=== PATIENT | male | born 1935 | race Caucasian/White ===

== ENCOUNTER 2018-02-21 16:31 | Inpatient (IN) | payer MEDICARE ==
[~2018-02-21] VITALS: Ht 182.9 cm; Wt 83.5 kg
[2018-02-21 17:43] LABS: BASOPHILS % 0.1 % (0.0-1.0); EOSINOPHILS % 0.1 % (0.0-6.0); HEMATOCRIT 40.9 % (38.2-49.6); HEMOGLOBIN 13.6 g/dL (14.0-18.0); LYMPHOCYTES # (AUTO) 0.4 (1.0-3.2); LYMPHOCYTES % 5.2 % (18.0-39.1); MEAN CORPUSCULAR HEMOGLOBIN 28.9 pg (28-32); MEAN CORPUSCULAR HGB CONC 33.3 g/dL (31-35); MEAN CORPUSCULAR VOLUME 86.8 fL (81-99); MONOCYTES # (AUTO) 0.3 (0.2-0.8); NEUTROPHILS # (AUTO) 7.7 (2.1-6.9); NEUTROPHILS % 91.2 % (38.7-80.0); PLATELET COUNT 150 x10e3/uL (140-360); RED BLOOD COUNT 4.71 x10e6/uL (4.3-5.7); RED CELL DISTRIBUTION WIDTH 13.8 % (11.7-14.4)
[2018-02-21] MEDS ORDERED: SODIUM CHLORIDE 0.9% 1000ML 1,000 ML IV SCH (17:45)
[2018-02-21 18:01] LABS: ALBUMIN 3.8 g/dL (3.5-5.0); ALBUMIN/GLOBULIN RATIO 1.1 (0.8-2.0); ANION GAP 18.2 mmol/L (8-16); CALCIUM 9.8 mg/dL (8.4-10.2); CREATININE, SERUM 1.2 mg/dL (0.72-1.25); POTASSIUM 4.2 mmol/L (3.5-5.1)
[2018-02-21 18:09] LABS: INR 0.94; PROTHROMBIN TIME 13.4 seconds (11.9-14.5)
[2018-02-21 18:10] LABS: PARTIAL THROMBOPLASTIN TIME 28.6 seconds (23.8-35.5)
--- NOTE | 2018-02-21 18:11 | Diagnostic Imaging Report ---
EXAMINATION: Chest AP portable INDICATION: Altered mental status. COMPARISON: None FINDINGS: TUBES and LINES: None. LUNGS: Lungs are well inflated. Lungs are clear. There is no evidence of pneumonia or pulmonary edema. PLEURA: No pleural effusion or pneumothorax. HEART AND MEDIASTINUM: Mediastinal wires and mediastinal clips. The cardiac silhouette is mildly enlarged. BONES AND SOFT TISSUES: No acute osseous lesion. UPPER ABDOMEN: No free air under the diaphragm. IMPRESSION: Mild cardiomegaly without acute decompensation. Signed by: Dr. Park Hebert M.D. on 02/21/2018 6:08 PM
--- NOTE | 2018-02-21 18:11 | Diagnostic Imaging Report ---
Examination: CT head without contrast Clinical Indication: Confusion. Altered mental status. Technique: Transaxial noncontrast images from the skull base through the vertex were obtained. Sagittal and coronal reformatted images were done. Dose modulation, iterative reconstruction, and/or weight based adjustment of the mA/kV was utilized to reduce the radiation dose to as low as reasonably achievable. Comparison: None. Findings: Scalp: No abnormalities. Bones: Intact. No fractures. No blastic or lytic lesions. Brain sulci: Moderate volume loss for patient's age. Ventricles: No hydrocephalus. Extra-axial space: No abnormalities. Parenchyma: There are confluent areas of low-attenuation within subcortical and periventricular white matter, nonspecific, but could represent microvascular ischemic disease. No masses, hemorrhage, or acute or chronic cortical based vascular insults. Suprasellar region: No abnormalities. Craniocervical junction: The foramen magnum is patent. No Chiari one malformation. Incidental findings: Atherosclerotic calcification of the cavernous and supraclinoid internal carotid and V4 segments of the bilateral vertebral arteries. Impression: 1. No acute intracranial finding. 2. Mild chronic microvascular ischemic change. Moderate volume loss for age. Signed by: Dr. Marilyn Watson M.D. on 02/21/2018 6:07 PM
[2018-02-21 18:24] LABS: CREATINE KINASE MB 4.4 ng/mL (0-5.0); THYROID STIMULATING HORMONE 0.824 uIU/mL (0.350-4.940)
[2018-02-21 19:05] LABS: PLATELET ESTIMATE ADEQUATE; PLATELET MORPHOLOGY COMMENT NORMAL; RBC MORPHOLOGY COMMENT NORMAL
[2018-02-21] MEDS ORDERED: ONDANSETRON HCL INJ 2 MG/ML VIAL IV PRN (19:15)
--- OUTSIDE RECORDS SUMMARY | 2018-02-21 19:29 | XMS REPORT ---
Author Author [facility] Address Unknown Phone Unavailable Care Team Providers Care [place] Line Attendant Name Role Phone JMNoé MCKOY Unavailable Unavailable Problems This patient has no known problems. Allergies, Adverse Reactions, Alerts This patient has no known allergies or adverse reactions. Medications This patient has no known medications. Results Test Description Test Time Test Comments Text Results Atomic Results Result Comments CHEST SINGLE (PORTABLE) 2018-02-21 18:07:00 [place] [address] Patient Name: DEJA LESLIE MR #: [id number] : 1935 Age/Sex: 82/M Req #: [id number] Adm Physician: Ordered by: JAYRO QUINONEZ [employer]OL Report #: [id number] Location: ER Room/Bed: Procedure: [id number] DX/CHEST SINGLE (PORTABLE) Exam Date: 02/21/18 Exam Time: 1740 REPORT STATUS: Signed EXAMINATION: Chest AP portable INDICATION: Altered mental status. COMPARISON: None FINDINGS: TUBES and LINES: None. LUNGS: Lungs are well inflated. Lungs are clear. There is no evidence of pneumonia or pulmonary edema. PLEURA: No pleural effusion or pneumothorax. HEART AND MEDIASTINUM: Mediastinal wires and mediastinal clips. The cardiac silhouette is mildly enlarged. BONES AND SOFT TISSUES: No acute osseous lesion. UPPER ABDOMEN: No free air under the diaphragm. IMPRESSION: Mild cardiomegaly without acute decompensation. Signed by: Dr. Park Vences M.D. on 02/21/2018 6:08 PM Dictated By: DEE VENCES MD, MD 07 Transcribed By: WILSON on 02/21/181807 COPY TO: JAYRO QUINONEZ NP CT BRAIN WO 2018-02-21 18:06:00 [place] [address] Patient Name: DEJA LESLIE MR #: [id number] : 1935 Age/Sex: 82/M Req #: [id number] Adm Physician: Ordered by: JAYRO QUINONEZ [employer]AL[employer] Report #: [id number] Location: ER Room/Bed: Procedure: [id number] CT/CT BRAIN WO Exam Date: 02/21/18 Exam Time: 1740 REPORT STATUS: Signed Examination: CT head without contrast Clinical Indication: Confusion. Altered mental status. Technique: Transaxial noncontrast images from the skull base through the vertex were obtained. Sagittal and coronal reformatted images were done. Dose modulation, iterative reconstruction, and/or weight based adjustment of the mA/kV was utilized to reduce the radiation dose to as low as reasonably achievable. Comparison: None. Findings: Scalp: No abnormalities. Bones: Intact. No fractures. No blastic or lytic lesions. Brain sulci: Moderate volume loss for patient's age. Ventricles: No hydrocephalus. Extra-axial space: No abnormalities. Parenchyma: There are confluent areas of low-attenuation within subcortical and periventricular white matter, nonspecific, but could represent microvascular ischemic disease. No masses, hemorrhage, or acute or chronic cortical based vascular insults. Suprasellar region: No abnormalities. Craniocervical junction: The foramen magnum is patent. No Chiari one malformation. Incidental findings: Atherosclerotic calcification of the cavernous and supraclinoid internal carotid and V4 segments of the bilateral vertebral arteries. Impression: 1. No acute intracranial finding. 2. Mild chronic microvascular ischemic change. Moderate volume loss for age. Signed by: Dr. Marilyn Valdez M.D. on 02/21/2018 6:07 PM Dictated By: MARILYN PRUETT MD 06 Transcribed By: WILSON on 02/21/181806 COPY TO: JAYRO QUINONEZ NP
[2018-02-21] MEDS ORDERED: BISOPROLOL FUMAR5 MG PO (19:36)
[2018-02-21] MEDS ORDERED: OMEPRAZOLE40 MG PO (19:36)
[2018-02-21] MEDS ORDERED: TERAZOSIN HCL5 MG PO (19:36)
[2018-02-21] MEDS ORDERED: ASPIR 8181 MG PO (19:36)
[2018-02-21] MEDS ORDERED: LOVASTATIN20 MG PO (19:36)
[2018-02-21] MEDS ORDERED: TYLENOL WITH C1 EACH PO (19:36)
[2018-02-21] MEDS ORDERED: POTASSIUM CHLO10 ME1 PO (19:36)
[2018-02-21] MEDS ORDERED: AMOXICILLIN250 MG PO (19:36)
[2018-02-21] MEDS ORDERED: FUROSEMIDE40 MG PO (19:36)
[2018-02-21] MEDS ORDERED: FINASTERIDE5 MG PO (19:36)
[2018-02-21 19:57] LABS: COLOR,URINE YELLOW (YELLOW)
[2018-02-21 19:58] LABS: BILIRUBIN,URINE NEGATIVE (NEGATIVE); CLARITY,URINE HAZY (CLEAR); KETONES,URINE TRACE (NEGATIVE); LEUKOCYTE ESTERASE ,URINE NEGATIVE (NEGATIVE); NITRITE,URINE NEGATIVE (NEGATIVE); PROTEIN,URINE DIPSTICK 1+ (NEGATIVE); URINE UROBILINOGEN 0.2 mg/dL (0.2 - 1)
[2018-02-21 20:18] LABS: BACTERIA,URINE MODERATE /HPF; EPITHELIAL CELLS,URINE FEW /LPF; RBC,URINE 0-5 /HPF (0-5)
[2018-02-21 20:19] LABS: MUCUS,URINE MANY (RARE)
[2018-02-21] MEDS: SODIUM CHLORIDE 0.9% 1000ML 1,000 ML IV SCH (21:52)
[2018-02-22] MEDS: SODIUM CHLORIDE 0.9% 1000ML 1,000 ML IV SCH ×2 (03:42→10:30)
[2018-02-22] MEDS ORDERED: CEFTRIAXONE SOD 1 GM VIAL IV SCH (06:30)
[2018-02-22] MEDS ORDERED: CARVEDILOL 12.5 MG TAB PO ONE (06:30)
[2018-02-22] MEDS ORDERED: HYDRALAZINE HCL 20 MG/ML VIAL IV PRN (10:15)
[2018-02-22] MEDS ORDERED: HYDRALAZINE HCL 20 MG/ML VIAL ONE (10:19)
[2018-02-22] MEDS ORDERED: ACETAMINOPHEN 325 MG TAB PO PRN (13:15)
[2018-02-22] MEDS ORDERED: PIPER-TAZ 3.375 GM / NS 50ML IV SCH ×2 (14:00)
--- NOTE | 2018-02-22 14:27 | Diagnostic Imaging Report ---
Exam: Brain MRI without IV contrast History: Dizziness, weakness, rule out stroke Comparison studies: Head CT 02/21/2018. Technique: Axial T2 FS, axial DWI, axial T2*GRE, axial T1 FLAIR and axial coronal T2 FLAIR. Intravenous contrast: None Findings: Limitations: The axial coronal T2 FLAIR sequences are somewhat limited by artifacts related to patient motion. Scalp: Normal in signal. No masses. Bone marrow: Normal in signal intensity. Brain sulci: Mildly prominent. Ventricles: Moderately dilated ventricles, slightly disproportionate to sulcal prominence is most likely related to a degree of central greater peripheral cortical volume loss. Consider normal pressure hydrocephalus (NPH) only in the appropriate clinical setting. No acute hydrocephalus. Extra axial spaces: No mass, no fluid collection. Parenchyma: No mass, hemorrhage or acute ischemia. Scattered T2 FLAIR hyperintense foci in the supratentorial white matter are nonspecific but most compatible with chronic microvascular ischemic changes. There is mild T2 FLAIR hyperintense capping-banding along the ventricular margins. Suprasellar region: No abnormalities. Craniocervical junction: Patent foramen magnum. No Chiari malformation. Vessels: Normal flow-voids in the arteries and sinuses. Incidental findings: Lens replacements for previous scattered surgery. Mild inflammatory mucosal thickening in the right maxillary sinus. IMPRESSION: No acute ischemia or other acute intracranial abnormalities. Chronic findings: 1. Moderate generalized volume loss. 2. Mild chronic microvascular ischemic changes. 3. Ventriculomegaly, likely related to volume loss. Consider NPH only in the appropriate clinical setting. Signed by: Dr. Heraclio Beasley M.D. on 02/22/2018 2:24 PM
[2018-02-22] MEDS: BISOPROLOL FUMARATE 10 MG TAB PO SCH (14:44)
[2018-02-22] MEDS: PIPER-TAZ 3.375 GM 50 ML IV SCH (14:44)
[2018-02-22] MEDS: LACTOBACILLUS ACIDOPHILUS CAPSULE PO SCH (16:35)
[2018-02-22] MEDS: METOPROLOL TARTRATE INJ 1 MG/ML VIAL IV PRN (16:36)
[2018-02-22 16:45] VITALS: BP 157/97
[2018-02-22 16:51] VITALS: BP 157/97
[2018-02-22 17:01] VITALS: BP 198/118
[2018-02-22 20:13] VITALS: BP 177/97
[2018-02-22 20:45] VITALS: BP 177/97
[2018-02-22] MEDS: TERAZOSIN HCL 5 MG CAP PO SCH (20:45)
[2018-02-22] MEDS: SIMVASTATIN 20 MG TAB PO SCH (20:45)
[2018-02-22] MEDS ORDERED: ZIPRASIDONE 20 MG VIAL IM ONE (21:15)
[2018-02-22] MEDS ORDERED: WATER STERILE 10 ML VIAL INJ PRN (21:30)
[2018-02-23] VITALS (7 sets, daily range): BP systolic 118–153; BP diastolic 62–99
[2018-02-23] MEDS: METOPROLOL TARTRATE INJ 1 MG/ML VIAL IV PRN (01:40)
[2018-02-23] MEDS: PIPER-TAZ 3.375 GM 50 ML IV SCH (02:00)
[2018-02-23 05:26] LABS: BASOPHILS % 0.1 % (0.0-1.0); EOSINOPHILS % 0.1 % (0.0-6.0); HEMOGLOBIN 12.4 g/dL (14.0-18.0); LYMPHOCYTES # (AUTO) 1.1 (1.0-3.2); LYMPHOCYTES % 7.5 % (18.0-39.1); MEAN CORPUSCULAR HEMOGLOBIN 28.7 pg (28-32); MEAN CORPUSCULAR HGB CONC 33.5 g/dL (31-35); MEAN CORPUSCULAR VOLUME 85.6 fL (81-99); MONOCYTES % 6.5 % (4.4-11.3); NEUTROPHILS # (AUTO) 12.5 (2.1-6.9); NEUTROPHILS % 85.2 % (38.7-80.0); PLATELET COUNT 163 x10e3/uL (140-360); RED BLOOD COUNT 4.32 x10e6/uL (4.3-5.7)
[2018-02-23 05:46] LABS: BLOOD UREA NITROGEN 23 mg/dL (7-26); BUN/CREATININE RATIO 29 (6-25); CALCIUM 8.9 mg/dL (8.4-10.2); CARBON DIOXIDE 22 mmol/L (22-29); CHLORIDE 105 mmol/L (98-107); CHOL/HDL RATIO 3.6 (3.9-4.7); CHOLESTEROL 125 MD/DL (0-199); CREATINE KINASE 356 IU/L (30-200); CREATININE, SERUM 0.78 mg/dL (0.72-1.25); EST GLOMERULAR FILTRATION RATE > 60 ML/MIN (60-); GLUCOSE 128 mg/dL (74-118); HDL CHOLESTEROL 35 MG/DL (40-60); LDL CHOLESTEROL 73 MG/DL (60-130); SODIUM 137 mmol/L (136-145); TRIGLYCERIDES 86 MG/DL (0-149)
[2018-02-23 06:06] LABS: THYROID STIMULATING HORMONE 0.533 uIU/mL (0.350-4.940)
[2018-02-23] MEDS: BISOPROLOL FUMARATE 10 MG TAB PO SCH (08:25)
[2018-02-23] MEDS: ASPIRIN 81 MG CHEW TAB PO SCH (08:25)
[2018-02-23] MEDS: LACTOBACILLUS ACIDOPHILUS CAPSULE PO SCH ×2 (08:25→16:48)
[2018-02-23] MEDS: FINASTERIDE 5 MG TAB PO SCH (08:25)
[2018-02-23] MEDS ORDERED: NON-FORMULARY MEDICATION (Bisoprolol Fumarate 5 MG) PO SCH (09:00)
[2018-02-23] MEDS ORDERED: BISOPROLOL FUMARATE 10 MG TAB PO SCH (09:00)
[2018-02-23] MEDS ORDERED: LACTATED RINGER'S 1,000 ML IV ONE (11:30)
--- NOTE | 2018-02-23 15:02 | Consultation ---
DATE OF CONSULTATION: February 23, 2018 CARDIOLOGY CONSULTATION REQUESTING PHYSICIAN: Dr. Hernandez REASON FOR CONSULTATION: A-flutter. HISTORY OF PRESENT ILLNESS: This is an 82-year-old male that presented with altered mental status. According to the patient and brother at the bedside, for the last 3 months he has been having confusion, making bad decisions and having generalized weakness. The brother stated that within the last 2 weeks it got worse, and he went to see his PCP. At the PCP's office, he was sent to the emergency room for further evaluation due to the altered mental status. He has a history of CAD and open heart surgery in the past and AK and stroke. He was so agitated last night that he was given some Geodon IM. This morning, he went into A-flutter, and cardiology was consulted. He denied any chest pain, any palpitations, any shortness of breath or diaphoresis. Troponin times 1 was negative. EKG showed normal sinus rhythm with no ST abnormalities. CK was elevated at 356. The BNP 198. B12 was 1351. TSH 0.5. PAST MEDICAL HISTORY: Hypertension, hyperlipidemia, GERD, stroke, CAD, BPH and AK. PAST SURGICAL HISTORY: CABG at [facility]. FAMILY HISTORY: Positive for hypertension and CAD. SOCIAL HISTORY: He lives at home with family. No smoking. No drinking. MEDICATIONS: See med disease. ALLERGIES: HE IS NOT ALLERGIC TO ANY MEDICATION. REVIEW OF SYSTEMS: Unable to obtain due to altered mental status. PHYSICAL EXAMINATION VITALS: Temperature 97, heart rate 70. Blood pressure 118/62, respirations 16, oxygen saturation 100% on 2 liters nasal cannula. GENERAL: He is awake and alert but pleasantly confused. HEENT: Mucous membranes are moist. NECK: Supple. LUNGS: Bilaterally clear to auscultation. CARDIOVASCULAR: S1, S2 present. ABDOMEN: Soft. NEUROLOGIC: He is awake. Answers simple questions but confused. EXTREMITIES: No edema. LABS: Sodium 137, potassium 4.0, chloride 105, CO2 22. BUN 23, creatinine 0.78. Glucose 128. White blood cells 14.6, hemoglobin 12.4, hematocrit 37.0, platelets 163. PT 13.4, PTT 28.6, INR 0.94. IMPRESSION 1. Atrial flutter. 2. Altered mental status. 3. Coronary artery disease with coronary artery bypass graft. 4. Hypertension. 5. Hyperlipidemia. 6. History of stroke. ASSESSMENT AND PLAN 1. He is back to normal sinus rhythm. Will go ahead and continue beta ric. 2. Will check his magnesium. 3. Will get bilateral carotid Doppler to rule out any occlusion. 4. He had an echocardiogram done that showed normal systolic function. EF 55% to 60%. 5. Will continue his home medications. 6. Further cardiac workup pending clinical cause. Thank you for this consultation. Dictated by Omar Hernandez NP. Job#: [id number]
[2018-02-23] MEDS ORDERED: HALOPERIDOL LACTATE 5 MG/ML VIAL IM PRN (16:00)
[2018-02-23] MEDS ORDERED: LORAZEPAM INJ 2 MG/ML VIAL IM PRN (16:00)
[2018-02-23] MEDS ORDERED: LORAZEPAM 0.5 MG TAB PO PRN (16:00)
[2018-02-23] MEDS ORDERED: OLANZAPINE 5 MG TAB PO PRN (16:00)
[2018-02-23] MEDS ORDERED: METOCLOPRAMIDE HCL 10 MG/2ML VIAL IV PRN (19:00)
[2018-02-23] MEDS ORDERED: METOPROLOL TARTRATE INJ 1 MG/ML VIAL IV PRN (19:15)
[2018-02-23] MEDS: SIMVASTATIN 20 MG TAB PO SCH (20:42)
[2018-02-23] MEDS: TERAZOSIN HCL 5 MG CAP PO SCH (20:42)
[2018-02-24] VITALS (7 sets, daily range): BP systolic 120–161; BP diastolic 57–88
[2018-02-24 05:14] LABS: BASOPHILS % 0.2 % (0.0-1.0); EOSINOPHILS # (AUTO) 0.2 (0.0-0.4); EOSINOPHILS % 1.7 % (0.0-6.0); HEMATOCRIT 37.8 % (38.2-49.6); HEMOGLOBIN 12.6 g/dL (14.0-18.0); LYMPHOCYTES # (AUTO) 1.8 (1.0-3.2); LYMPHOCYTES % 19.5 % (18.0-39.1); MEAN CORPUSCULAR HGB CONC 33.3 g/dL (31-35); MEAN CORPUSCULAR VOLUME 87.1 fL (81-99); MONOCYTES # (AUTO) 0.7 (0.2-0.8); MONOCYTES % 7.4 % (4.4-11.3); NEUTROPHILS # (AUTO) 6.6 (2.1-6.9); NEUTROPHILS % 70.8 % (38.7-80.0); PLATELET COUNT 136 x10e3/uL (140-360); RED BLOOD COUNT 4.34 x10e6/uL (4.3-5.7); RED CELL DISTRIBUTION WIDTH 14.1 % (11.7-14.4)
[2018-02-24] MEDS ORDERED: ENOXAPARIN SODIUM INJ 100 MG/ML SYR SC SCH (08:00)
--- NOTE | 2018-02-24 08:49 | Consultation ---
DATE OF CONSULTATION: February 23, 2018 PSYCHIATRIC CONSULTATION REASON FOR CONSULTATION: Evaluate the patient's psychosis. HISTORY OF PRESENT ILLNESS: Patient is an 82-year-old male admitted to the hospital for generalized weakness and dehydration. Psychiatric consultation was sought to evaluate the patient's psychosis. As per the medical record, the patient has been confused for less than a month. Was making bad decisions. His confusion worsened when he went to see his primary care doctor, who then recommended to be admitted to the hospital. When he was admitted to the hospital, he became very agitated. Last night, he received 1 dose of Geodon. In the morning, he went into A-flutter, and cardiology was consulted. PAST MEDICAL HISTORY: Includes hypertension, hyperlipidemia, GERD, stroke, CAD, BPH, and KS. Upon evaluation today, the patient is found to be in the room with his family members. He is alert, awake and oriented to self. He recognizes family members, but very confused. He does not know where he is or the reason for his hospitalization. Patient does not make sense and unable to answer questions appropriately. History was taken with the help of his family members. As per the family members, the patient was "normal" until last week. However, he has been making bad decisions. For example, trading in his car for a lease car, and allowing people to take advantage of him. He has been hallucinating, seeing people in the room. He has never been diagnosed with any dementia. He has been sleeping and eating okay as per family. Prior to the prior event, he was a caregiver for his and was driving and independent in his ADLs. PAST PSYCHIATRIC HISTORY: The patient has no past psychiatric history as per family members. He does not drink alcohol or use any drugs. FAMILY HISTORY: He has a father who has dementia. Brother has dementia. SOCIAL HISTORY: The patient lives with is . MENTAL STATUS EXAMINATION GENERAL: The patient is an elderly male. He is alert, awake and oriented to self. He is confused and disoriented. His mood appears to be anxious. He denies any suicidal or homicidal ideation. He denies any hallucinations. Thought process is loose. He is delusional. Insight and judgment are impaired. Memory appears to be grossly impaired. CURRENT MEDICATIONS 1. . 2. Terazosin. 3. Lactobacillus. 4. Glimepiride. 5. Aspirin. 6. Bisoprolol. 7. Metoprolol. 8. Enoxaparin. 9. Acetaminophen. CURRENT LABS: WBC 9.32, RBC 4.34, hemoglobin 12.6, hematocrit 37.8, and platelets 136,000. Sodium 137, potassium 4, chloride 105, CO2 22, BUN 23, creatinine 0.78. He does appear to have an infection based on the UA. ASSESSMENT: Unspecified psychosis/delirium: rule out dementia. PLAN: Add Zyprexa 2.5 mg p.o. q.6 h. p.r.n. Add Ativan 0.5 mg p.o. and IM q.6 h. p.r.n. Add Haldol 1 mg IM q.6 h. p.r.n. Monitor for agitation and mood. Discussed with family members. Discussed with nursing staff. Thank you for the consultation. ADDENDUM: I would like state that the nursing staff reports the patient was restless and agitated. He wanted to leave the hospital. This is also corroborated with family members who were attending as well. DICTATED BY ERASMO GARY Job#: [id number] LEI
[2018-02-24] MEDS: BISOPROLOL FUMARATE 10 MG TAB PO SCH (09:57)
[2018-02-24] MEDS: ENOXAPARIN INJ 80 MG/0.8 ML SYR SC SCH ×2 (09:57→21:28)
[2018-02-24] MEDS: LACTOBACILLUS ACIDOPHILUS CAPSULE PO SCH ×2 (09:57→16:20)
[2018-02-24] MEDS: ASPIRIN 81 MG CHEW TAB PO SCH (09:57)
[2018-02-24] MEDS: FINASTERIDE 5 MG TAB PO SCH (09:57)
[2018-02-24] MEDS ORDERED: ACETAMINOPHEN/CODEINE 300MG - 30MG TAB PO PRN (15:15)
--- NOTE | 2018-02-24 15:51 | Progress Note ---
DATE: February 24, 2018 I am covering for Dr. Hernandez today. SUBJECTIVE: The patient had some confusion last night. Seems a little bit more conversant today. He does not have fevers. He is not complaining of pain. PHYSICAL EXAMINATION VITAL SIGNS: The patient is afebrile. The blood pressure is 121/57 and the saturation is 98%. The pulse is 84. HEENT: Shows no facial swelling or erythema. The nasal mucosa is normal. The oropharynx is normal. LYMPHATIC: Shows no submandibular cervical or supraclavicular adenopathy. CARDIAC: Exam reveals a regular rate rhythm with normal S1 and S2. LUNGS: Auscultation reveals clear breath sounds bilaterally. There is no wheezing. ABDOMEN: Soft and nontender. There is no rebound or guarding. EXTREMITIES: Examination shows no leg edema or calf tenderness. RADIOGRAPHIC DATA: MRI of the brain shows some chronic microvascular changes with some moderate generalized volume loss and some ventriculomegaly. IMPRESSIONS 1. Metabolic encephalopathy. 2. Paroxysmal atrial flutter. 3. Coronary artery disease with prior coronary artery bypass grafting. 4. Hypertension. PLAN 1. Continue to monitor mental status. 2. Hold any medications that could be worsening confusion. 3. Consider neurology evaluation for normal-pressure hydrocephalus. Job#: [id number] CQ
[2018-02-24] MEDS: SIMVASTATIN 20 MG TAB PO SCH (21:28)
[2018-02-24] MEDS: TERAZOSIN HCL 5 MG CAP PO SCH (21:28)
[2018-02-25] VITALS: BP 141/73
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
[2018-02-25 04:00] VITALS: BP 160/72
[2018-02-25 07:47] VITALS: BP 189/90
[2018-02-25] MEDS: ENOXAPARIN INJ 80 MG/0.8 ML SYR SC SCH ×2 (09:20→20:50)
[2018-02-25] MEDS: FINASTERIDE 5 MG TAB PO SCH (09:20)
[2018-02-25] MEDS: LACTOBACILLUS ACIDOPHILUS CAPSULE PO SCH ×2 (09:20→16:07)
[2018-02-25] MEDS: ASPIRIN 81 MG CHEW TAB PO SCH (09:20)
[2018-02-25] MEDS: PANTOPRAZOLE SOD 40 MG TABEC PO SCH (09:20)
[2018-02-25] MEDS: BISOPROLOL FUMARATE 10 MG TAB PO SCH (09:20)
[2018-02-25 11:34] VITALS: BP 138/69
--- NOTE | 2018-02-25 14:48 | Progress Note ---
DATE: SUBJECTIVE: MRI and neurology evaluation showed findings suggestive of normal pressure hydrocephalus. PHYSICAL EXAMINATION VITAL SIGNS: Patient is afebrile. The vital signs are stable. HEENT: No facial swelling or erythema. The oropharynx is normal. CARDIAC: Regular rate rhythm with normal S1 and S2. There are no murmurs or rubs. LUNGS: Auscultation of lungs reveals clear breath sounds bilaterally. There is no wheezing. ABDOMEN: Soft and nontender. There is no rebound or guarding. NEUROLOGICAL: Patient's sensorium has improved, although he still has difficulty with short-term memory. He has no focal neurological problems. IMPRESSION 1. Normal pressure hydrocephalus. 2. Metabolic encephalopathy. 3. Paroxysmal atrial flutter. 4. Hypertension. 5. Coronary artery disease. PLAN 1. Patient is awaiting a lumbar puncture, which measures the cerebrospinal fluid pressure. 2. Continue to monitor medications closely. 3. Continue . Job#: [id number] EVA
[2018-02-25 15:32] VITALS: BP 126/70
[2018-02-25 20:00] VITALS: BP 169/79
[2018-02-25] MEDS: SIMVASTATIN 20 MG TAB PO SCH (20:50)
[2018-02-25] MEDS: TERAZOSIN HCL 5 MG CAP PO SCH (20:50)
[2018-02-26] VITALS (7 sets, daily range): BP systolic 142–179; BP diastolic 65–81
[2018-02-26] MEDS: BISOPROLOL FUMARATE 10 MG TAB PO SCH (07:55)
[2018-02-26] MEDS: PANTOPRAZOLE SOD 40 MG TABEC PO SCH (07:55)
[2018-02-26] MEDS: FINASTERIDE 5 MG TAB PO SCH (07:55)
[2018-02-26] MEDS: ENOXAPARIN INJ 80 MG/0.8 ML SYR SC SCH ×2 (07:55→21:00)
[2018-02-26] MEDS: ASPIRIN 81 MG CHEW TAB PO SCH (07:55)
[2018-02-26] MEDS: LACTOBACILLUS ACIDOPHILUS CAPSULE PO SCH ×2 (07:55→17:36)
[2018-02-26] MEDS: SIMVASTATIN 20 MG TAB PO SCH (21:21)
[2018-02-26] MEDS: TERAZOSIN HCL 5 MG CAP PO SCH (21:21)
[2018-02-27] VITALS: BP 145/65
[2018-02-27 04:00] VITALS: BP 142/72
[2018-02-27 07:29] VITALS: BP 131/72
[2018-02-27 08:00] VITALS: BP 131/72
[2018-02-27] MEDS: LACTOBACILLUS ACIDOPHILUS CAPSULE PO SCH ×2 (08:20→17:37)
[2018-02-27] MEDS: ASPIRIN 81 MG CHEW TAB PO SCH (08:20)
[2018-02-27] MEDS: PANTOPRAZOLE SOD 40 MG TABEC PO SCH (08:20)
[2018-02-27] MEDS: FINASTERIDE 5 MG TAB PO SCH (08:20)
[2018-02-27] MEDS: BISOPROLOL FUMARATE 10 MG TAB PO SCH (08:21)
[2018-02-27] MEDS: ENOXAPARIN INJ 80 MG/0.8 ML SYR SC SCH ×3 (09:00→20:09)
--- NOTE | 2018-02-27 09:14 | Progress Note ---
DATE: February 24, 2018 PSYCHIATRIC PROGRESS NOTE The patient is in the room. He is doing better. He is oriented to self, place and situation; but he does not know the reason for his hospitalization. He has a sitter in the room. He is calm, not agitated or combative. He did receive p.r.n. p.o. last night. He is improving slowly. He is receiving medication. No serious side effects seen. ASSESSMENT: Unspecified psychosis; rule out dementia. PLAN 1. Continue p.r.n. p.o. medications. 2. Monitor for mood. 3. Continue with Ativan p.r.n. IM and Haldol p.r.n. IM. Dictated by: ERASMO John Job#: [id number]
[2018-02-27 11:48] LABS: INR 0.96; PROTHROMBIN TIME 13.7 seconds (11.9-14.5)
[2018-02-27] MEDS ORDERED: LIDOCAINE HCL 1% LOCAL INJ 20 ML VIAL ONE (11:57)
--- NOTE | 2018-02-27 13:07 | Diagnostic Imaging Report ---
Exam:Lumbar puncture History: Normal pressure hydrocephalus. Comparison: None available Findings: Following informed consent and sterile preparation of the lower back was accomplished. Local anesthesia with 1% Xylocaine was utilized. Puncture of the thecal sac at the L5-S1 level with a 22-gauge and a 20-gauge spinal needle was accomplished with 3 separate punctures. Opening pressure could not be obtained due to the stoppage of CSF flow through the needle. A total of 30 cc of CSF was removed and sent to the laboratory for analysis. Fluoroscopy time: 1.8 minutes Total dose: 73.62 mGy Impression: Fluoroscopic lumbar puncture. Signed by: Dr. Timur Pacheco DO on 02/27/2018 1:04 PM
[2018-02-27 13:09] LABS: APPEARANCE,CSF CLEAR (CLEAR); COLOR,CSF COLORLESS (COLORLESS); TUBE NUMBER 3
[2018-02-27 13:11] LABS: WHITE BLOOD CELL,CSF 1 cells/uL (0-5)
[2018-02-27 16:00] VITALS: BP 136/63
--- NOTE | 2018-02-27 17:09 | Consultation ---
DATE OF CONSULTATION: February 27, 2018 NEUROSURGICAL CONSULTATION REASON FOR CONSULTATION: Normal-pressure hydrocephalus. 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 He was admitted to [facility] and has undergone a thorough workup which has included neurology consultation, CT and MRIs of the brain, and a high-volume lumbar puncture performed by Interventional Radiology. Dr. Knight, the neurologist, has monitored his gait before and after the lumbar puncture. Both Dr. Knight and the patient believe that he had a substantial improvement of his gait with regard to decreased shuffling and increased fluency of gait immediately after the lumbar puncture. I was consulted for placement of a ventriculoperitoneal shunt. PHYSICAL EXAMINATION: The patient is alert and oriented x2. His memory is moderately impaired both short term and clinical trial head. In spite of this, his judgment is fairly well preserved. Peroneal nerves are intact. Motor strength is symmetric. There is no pronator drift. When sitting in bed, he tends to fall backwards and to the right. He is able to stand with minimal 1-person assistance and ambulate. Although he shuffles and limps a little bit, this is apparently a great deal better than he could do yesterday before the lumbar puncture. He is able to walk by himself all the way to the door of his room. CT and MRI of the brain were reviewed. There is moderate dilatation of the lateral ventricles and the temporal horns, which is somewhat out of proportion for the degree of brain atrophy. IMPRESSION: Dementia, gait apraxia, and urinary incontinence in association with dilatation of the lateral ventricles and a positive response to lumbar puncture indicative of normal-pressure hydrocephalus. I agree with placement of a ventriculoperitoneal shunt. I have described the operation and its risks and benefits to the patient and his family in great detail. Specifically, the risks of infection, bleeding, and the possibility of nonimprovement in spite of the positive lumbar puncture were explained to the patient and his family. The possibility that he might still have a different form of dementia such as Alzheimer's disease was explained. They fully understand all these issues and wish to proceed with surgery. We will go ahead and transfer the patient to [facility] in order to accomplish that. Job#: [id number] EV
[2018-02-27 17:47] LABS: BASOPHILS % 0.3 % (0.0-1.0); EOSINOPHILS # (AUTO) 0.1 (0.0-0.4); EOSINOPHILS % 0.5 % (0.0-6.0); HEMATOCRIT 41.5 % (38.2-49.6); HEMOGLOBIN 13.5 g/dL (14.0-18.0); LYMPHOCYTES # (AUTO) 0.8 (1.0-3.2); LYMPHOCYTES % 5.6 % (18.0-39.1); MEAN CORPUSCULAR HEMOGLOBIN 28.5 pg (28-32); MEAN CORPUSCULAR HGB CONC 32.5 g/dL (31-35); MEAN CORPUSCULAR VOLUME 87.6 fL (81-99); MONOCYTES # (AUTO) 0.7 (0.2-0.8); MONOCYTES % 5.1 % (4.4-11.3); NEUTROPHILS # (AUTO) 12.4 (2.1-6.9); PLATELET COUNT 198 x10e3/uL (140-360); RED BLOOD COUNT 4.74 x10e6/uL (4.3-5.7); RED CELL DISTRIBUTION WIDTH 13.8 % (11.7-14.4)
[2018-02-27 18:11] LABS: ALBUMIN 3.4 g/dL (3.5-5.0); ALBUMIN/GLOBULIN RATIO 1.1 (0.8-2.0); ANION GAP 13.8 mmol/L (8-16); CREATININE, SERUM 1.2 mg/dL (0.72-1.25); POTASSIUM 3.8 mmol/L (3.5-5.1)
[2018-02-27] MEDS: SIMVASTATIN 20 MG TAB PO SCH (20:09)
[2018-02-27] MEDS: TERAZOSIN HCL 5 MG CAP PO SCH (20:09)
[2018-02-27 20:47] VITALS: BP 131/69
--- NOTE | 2018-02-27 21:30 | Progress Note ---
DATE: February 27, 2018 PSYCHIATRIC PROGRESS NOTE Patient evaluated and events noted. Patient is in the room. He is doing better. He does not have any sitter. He is oriented to self, place, and time. He is calm, pleasant, and cooperative, making sense, comfortable. He stated he is doing okay. He denies depression, anxiety. He denies any hallucination. He is not restless or agitated. He denies any side effects from his medication. ASSESSMENT: 1. Unspecified psychosis/delirium, resolved. 2. Rule out dementia. PLAN: To: 1. Continue with Zyprexa 2.5 mg p.o. q.6h. p.r.n. 2. Continue with Ativan 0.5 mg p.o. q.6h. p.r.n. 3. Continue with Haldol 1 mg IM q.6h. p.r.n. 4. Continue with Ativan 0.5 mg IM q.6h. p.r.n. 5. Monitor for agitation. Dictated by ERASMO John Job#: [id number]
== END 2018-02-27 20:45 | disposition short-term general hospital (02) | DRG 56 ==
LOC: ER 16:31 → ERHOLD 19:03 → IMCU 02-22 16:17 → OBSVTOIN 02-25 13:48 → MED/SURG2 02-25 17:39
PROVIDERS: ADMIT Internal Medicine; ATTEND Internal Medicine
PROC: 009U3ZX Drainage of Spinal Canal, Percutaneous Approach, Diagnostic (ICD-10-PCS; principal; 2018-02-27)
DX: G91.2 (Idiopathic) normal pressure hydrocephalus (principal); G93.41 Metabolic encephalopathy; I48.92 Unspecified atrial flutter; F02.81 Dementia in other diseases classified elsewhere, unspecified severity, with behavioral disturbance; F05 Delirium due to known physiological condition; E87.2 Acidosis; N39.0 Urinary tract infection, site not specified; R48.2 Apraxia; G31.9 Degenerative disease of nervous system, unspecified; I10 Essential (primary) hypertension; R32 Unspecified urinary incontinence; E78.5 Hyperlipidemia, unspecified; I25.10 Atherosclerotic heart disease of native coronary artery without angina pectoris; I25.2 Old myocardial infarction; K21.9 Gastro-esophageal reflux disease without esophagitis; N40.0 Benign prostatic hyperplasia without lower urinary tract symptoms; Z95.1 Presence of aortocoronary bypass graft; G30.9 Alzheimer's disease, unspecified; E86.0 Dehydration; Z79.01 Long term (current) use of anticoagulants; Z86.73 Personal history of transient ischemic attack (TIA), and cerebral infarction without residual deficits
CPT/HCPCS: 36415; 62270; 70450; 70551; 71045; 74470; 77003; 80048; 80053; 80061; 81001; 82140; 82550; 82553; 82607; 83036; 83605; 83690; 83735; 83880; 84425; 84443; 84484; 85025; 85610; 85730; 86592; 87040; 87070; 87086; 87205; 89051; 93005; 93306; 93880; 96372; 97139; 99285; G0378; J0360; J0696; J1630; J1650; J2001; J2543; J3486; J7030; J7120